=== PATIENT | female | born 1985 | race Caucasian/White ===

== ENCOUNTER 2017-07-21 06:30 | Observation (INO) | payer OTHER ==
[2017-07-21 08:00] VITALS: PULSE 85; RESP 22; O2SAT 97
[2017-07-21] MEDS ORDERED: BETAMETHASONE 6 MG/ML SUS IM PRN (08:05)
[2017-07-21] MEDS ORDERED: AMPICILLIN 1 GM PDS 2 GM in SODIUM CHLORIDE 0.9% 100 ML 100 ML IV ONE (08:05)
[2017-07-21] MEDS ORDERED: AMPICILLIN 1 GM PDS ONE (08:06)
[2017-07-21] MEDS ORDERED: SODIUM CHLORIDE 0.9% FLUSH 10 ML SOL IV PRN ×2 (08:28→09:04)
[2017-07-21 08:49] VITALS: BP 136/80; TEMP 99.3
== END 2017-07-21 09:37 | disposition short-term general hospital (02) | DRG 782 ==
LOC: EDSTATUS 06:30 → OBOP 07:07 → OB 07:07
PROVIDERS: ADMIT Family Medicine; ATTEND Family Medicine
DX: O42.913 Preterm premature rupture of membranes, unspecified as to length of time between rupture and onset of labor, third trimester (principal); Z3A.35 35 weeks gestation of pregnancy
CPT/HCPCS: 59025; 84112; J0290; J0702